=== PATIENT | female | born 1950 | race Caucasian/White ===

== ENCOUNTER → 2019-02-12 | Day surgery (SDC) | payer MEDICARE, BC ==
[~2019-02-12] MED LIST: Lactated Ringers 1,000 ML IV SCH; Propofol 200 MG/20 ML SDV IV ONE
--- NOTE | 2019-02-15 09:49 | OR ---
DATE OF OPERATION: 02/12/2019 PREOPERATIVE DIAGNOSIS: GASTROESOPHAGEAL REFLUX DISEASE. POSTOPERATIVE DIAGNOSIS: GASTROESOPHAGEAL REFLUX DISEASE. SURGEON: Reese Brownlee MD PROCEDURE: DIAGNOSTIC ESOPHAGOGASTRODUODENOSCOPY WITH BIOPSIES X2, AFIA. ANESTHESIA: MAC. COMPLICATIONS: None. SPECIMEN: 1. Antral biopsy x2. 2. AFIA. FINDINGS: 1. Full-length EGD. 2. Chronic appearing antral gastritis without ulceration or erosion. 3. Spontaneous GERD without esophagitis, stricturing, ulceration, or Kahn's changes. RECOMMENDATIONS: Medical followup with Dr. Poe. INDICATIONS: The patient has been having some ongoing issues with reflux. Dr. Poe recommended a diagnostic endoscopy. DESCRIPTION OF PROCEDURE: The patient was prepped and draped, placed in the left lateral decubitus position with the head of the bed elevated. A lubricated Olympus gastroscope was inserted over a bit, advanced to the cricopharyngeus area, and easily intubated into the esophagus. The esophageal lining was benign in its entire course. The Z-line was crisp and sharp at 40 cm. There was some very mild and infrequent spontaneous reflux seen, but no signs of distal esophagitis, stricturing, ulceration, or Kahn's changes. The scope was advanced into the stomach through the pylorus and into the second portion of the duodenum. This and the duodenal bulb were benign. The scope was brought back into the stomach and retroflexed. The upper fundus and cardia were unremarkable. Upon straightening, the rest of the fundus was benign. The antrum showed some chronic gastritis changes without any acute inflammation, ulceration, or erosion. Two biopsies were taken and a CLOtest. Air was then suctioned from the stomach and the scope removed without complication. PIERRE/ANDREW /[id number]
== END ==
LOC: CC.SDS 08:40
PROVIDERS: ATTEND Family Medicine
DX: K21.9 Gastro-esophageal reflux disease without esophagitis (principal); K29.50 Unspecified chronic gastritis without bleeding; I10 Essential (primary) hypertension; E11.9 Type 2 diabetes mellitus without complications; J45.909 Unspecified asthma, uncomplicated; Z79.82 Long term (current) use of aspirin; Z79.51 Long term (current) use of inhaled steroids; Z79.899 Other long term (current) drug therapy
CPT/HCPCS: 87081; J2704; J7120